=== PATIENT | male | born 1960 | race Asian ===

== ENCOUNTER 2021-10-13 16:23 | Observation (INO) ==
[2021-10-13] MEDS ORDERED: amLODIPine 5 MG TABLET PO STA (16:56)
[2021-10-13 17:25] LABS: Basophils % 0.1 % (0.0-0.8); Eosinophils # 0.1 10*3/uL (0.0-0.87); Eosinophils % 1.3 % (0.00-10.9); Hematocrit 37.8 VOL% (42.0-52.0); Hemoglobin 12.5 GM/DL (14.0-18.0); Immature Granulocytes % 0.4 %; Immature Granulocytes Absolute 0.03 #; Lymphocytes # 1.6 10*3/uL (1.4-4.0); Lymphocytes % 23.8 % (21.2-54.2); Mean Corpuscular HGB Conc 33.1 GM/DL (32-36); Mean Corpuscular Volume 81.6 FL (87-102); Mean Platelet Volume 10.3 FL (9.6-12.0); Monocytes # 0.5 10*3/uL (0.11-0.8); Monocytes % 7.9 % (1.7-12.7); Neutrophils % 66.5 % (38.7-73.9); Platelet Count 267 T/CUMM (130-400); Red Blood Count 4.63 MC/CUMM (3.8-5.5); White Blood Count 6.8 T/CUMM (4-12)
[2021-10-13 17:42] LABS: Alanine Aminotransferase 21 U/L (16-61); Albumin 3.5 G/DL (3.4-5.0); Alkaline Phosphatase 97 U/L (45-117); Aspartate Amino Transferase 12 U/L (0-37); Bilirubin,Total < 0.39 MG/DL (0.20-1.00); Blood Urea Nitrogen 23 MG/DL (7-18); Calcium 8.9 MG/DL (8.5-10.1); Carbon Dioxide 28 MMOL/L (21-32); Chloride 103 MMOL/L (98-107); Glucose 307 MG/DL (74-106); Osmolality,Calculated 288.8 MOS/KG (273-304); Potassium 4.3 MMOL/L (3.5-5.1); Sodium 137 MMOL/L (136-145); Total Protein 7.3 G/DL (6.4-8.2)
[2021-10-13] MEDS ORDERED: LABETALOL 20 MG/4 ML SYRINGE IV STA (18:51)
[2021-10-13] MEDS ORDERED: ENOXAPARIN 100 MG/ML SYRINGE SUBCUT STA (18:55)
[2021-10-13] MEDS ORDERED: GLUCAGON 1 MG VIAL IM PRN (19:01)
[2021-10-13] MEDS ORDERED: hydrALAZINE 20 MG/1 ML VIAL IV PRN (19:05)
[2021-10-13] MEDS ORDERED: DEXTROSE 10% 250 ML BAG IV PRN (19:20)
[2021-10-13] MEDS ORDERED: SODIUM CHLORIDE 0.45% 1,000 ML IV SCH (19:30)
[2021-10-13] MEDS: INSULIN LISPRO 100 UNIT/ML SUBCUT SCH (21:52)
[2021-10-14 04:53] LABS: Basophils % 0.1 % (0.0-0.8); Eosinophils # 0.1 10*3/uL (0.0-0.87); Eosinophils % 0.9 % (0.00-10.9); Hematocrit 38.6 VOL% (42.0-52.0); Hemoglobin 12.8 GM/DL (14.0-18.0); Immature Granulocytes % 0.3 %; Immature Granulocytes Absolute 0.02 #; Lymphocytes # 1.8 10*3/uL (1.4-4.0); Mean Corpuscular HGB Conc 33.2 GM/DL (32-36); Mean Corpuscular Volume 81.8 FL (87-102); Mean Platelet Volume 10.5 FL (9.6-12.0); Monocytes # 0.6 10*3/uL (0.11-0.8); Monocytes % 7.4 % (1.7-12.7); Neutrophils % 67.3 % (38.7-73.9); Platelet Count 254 T/CUMM (130-400); Red Blood Count 4.72 MC/CUMM (3.8-5.5); Red Cell Distribution Width 12.9 % (9.3-17.3); White Blood Count 7.5 T/CUMM (4-12)
[2021-10-14 05:20] LABS: Calcium 9.3 MG/DL (8.5-10.1); Osmolality,Calculated 281.1 MOS/KG (273-304); Potassium 3.7 MMOL/L (3.5-5.1); Risk Ratio 5.6; Thyroid Stimulating Hormone 1.51 uIU/ml (0.358-3.74); VLDL Cholesterol 66.8 MG/DL
[2021-10-14] MEDS ORDERED: metFORMIN 500 MG TABLET PO SCH (08:00)
[2021-10-14] MEDS ORDERED: INSULIN GLARGINE 100 UNIT/ML SUBCUT SCH (09:00)
[2021-10-14] MEDS ORDERED: ROSUVASTATIN 20 MG TABLET PO SCH (09:00)
[2021-10-14] MEDS ORDERED: LOSARTAN 50 MG TABLET PO SCH (09:00)
[2021-10-14] MEDS ORDERED: TAMSULOSIN 0.4 MG CAPSULE PO SCH (09:00)
[2021-10-14] MEDS ORDERED: OMEGA 3 ACID ETHYL ESTERS 1 GM CAPSULE PO SCH (09:00)
[2021-10-14] MEDS ORDERED: amLODIPine 10 MG TABLET PO SCH (09:00)
[2021-10-14 10:02] VITALS: BP 161/92
[2021-10-14] MEDS: INSULIN LISPRO 100 UNIT/ML SUBCUT SCH ×2 (10:42→13:12)
[2021-10-14] MEDS ORDERED: ENOXAPARIN 40 MG/0.4 ML SYRINGE SUBCUT SCH (20:00)
== END 2021-10-14 13:50 | disposition home or self-care (01) ==
LOC: N.ED 16:23 → N.EDINP 16:23 → N.TELEN 20:13
PROVIDERS: ADMIT Internal Medicine; ATTEND Internal Medicine